=== PATIENT | female | born 1995 | race Caucasian/White ===

== ENCOUNTER 2025-07-29 12:57 | Outpatient (AMB) | payer OTHER, SELFPAY ==
--- NOTE | 2025-07-29 13:00 | MHC.OFFVIS ---
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 According to primary care notes, she has been using sumatriptan and Zofran but without sufficient relief. Nadiya tells me today, she began having headaches about 3 years ago and at this time if was a few timer per year. About 2-3 months ago it was a few times per week and the last month or so her headaches have been daily. 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 Her headaches are often present upon awakening in the morning. Her pain locating is occipital and temporal and at times behind her eyes. She has a squeezing pressure pain. Her pain is always bilateral. Her pain can reach an 8/10 and can prevent her from going and doing activities. She has associated light sensitivity and nausea but does not have any vision changes, or sensitivity to smells. Her headaches have been all day but tend to be worse around lunch time. Darkness, rest, ad ice can be beneficial. Caffeine can make them worse. Past when her headaches were not frequent, they were sometimes accompanied by visual auras described as squiggly lines in her vision preceding her headaches. She has not had any recent visual auras. She also notes 1 episode where she had aphasia associated with her migraine episode. She does also note that she has not been on any antianxiety medication for approximately 1 year. She had previously been on SSRIs in the past. She had been taking sumatriptan but this was not providing benefit. She has not taken it in about 3 weeks. When she was taking sumatriptan she was taking it on average twice per week. She has however been taking Tylenol and ibuprofen. She estimates that she takes at least 4 or 6 tablets of 200 mg tablets ibuprofen daily and has been doing this for the past 3 weeks or so. Other related background information: Sleep: Awakes from sleep frequently and can be tired duting the day. She does not snore. Stressors: Does have some work related stress and overall rates it to be 7/10. Hydration: She tells me that it could be better . She estimates 1 16oz bottles per day Caffeine intake: <100mg per day Alcohol intake:A couple times per month Substance use:Marijuana weekly Tobacco use:None Last eye exam:About 2 years ago Last dental visit: She does clench her teeth profoundly. She has had some gum issues d/t her clenching History of head injury: No Family planning considerations: No plans to become . No longer on BC Past medication trials: Sumatriptan-initially some benefit but eventually became less effective Prior workup: None PFSH Medical History (Updated 07/29/25 @ 13:52 by Tayler Wheatley CNP) Migraine Anxiety Family History (Updated 07/29/25 @ 13:11 by Andreas Marquez [facility]) Mother Breast cancer Father Alcoholic Bipolar disorder Depression ADHD Brother Depression Social History (Updated 07/29/25 @ 13:11 by Andreas Marquez [facility]) Alcohol intake: current Comment: 1-2 times a month Patient Tobacco Use Status: Never used Tobacco Review of Systems Const All systems reviewed & are unremarkable except as noted in HPI and below Physical Exam Vital Signs: Last Vital Signs Pulse 93 07/29/25 13:07 Resp 16 07/29/25 13:07 BP 108/68 07/29/25 13:07 Pulse Ox 100 07/29/25 13:07 Oxygen Delivery Method Room Air 07/29/25 13:07 BMI result Body Mass Index 25.8 Const General: cooperative, healthy appearing, comfortable and no acute distress Nutritional Appearance: well nourished Orientation/consciousness: patient oriented x3 Limitations: no limitations HEENT Head: Yes normal to inspection and Yes normocephalic Eyes General: appearance normal, both eyes and all related structures Visual Jimenez: normal visual jimenez by confrontation Alignment and Position: alignment normal Periorbital: periorbital findings normal Eyelids: Yes eyelids normal Conjunctivae: conjunctivae normal Sclerae: sclerae normal Back/Spine/Pelvis Other: Bilateral trapezius tenderness and tightening. No occipital notch tenderness. Some mild tenderness over the temporal muscles. No TMJ clicking or dislocation. Neuro General: patient oriented x3 and deep tendon reflexes 2+ bilaterally Cranial nerves: Yes CN's II-XII intact bilaterally and Yes Facial sensation intact/muscles of mastication intact Cognition (Neuro): normal cognition Gait exam (Neuro): Normal gait present Motor exam (neuro): 5/5 motor strength present throughout and no tremor noted Sensory Exam: double simultaneous stimulation for sensation normal Romberg Test: Negative Pupils: Normal pupillary reactivity/response: bilateral Psych Appearance: grossly normal Mental Status: mental status grossly normal Speech and movement: Normal speech and movement present and Clear speech present Affect: normal affect Attitude: cooperative Thought process: Normal thought process present Thought content: Normal thought content present Insight: Good insight present (Psych) Judgement: Good judgement present (Psych) Assessment & Plan Assessment & Plan (1) Aphasia: Code(s): R47.01 - Aphasia Category: Medical (2) Worsening headaches: Code(s): R51.9 - Headache, unspecified Category: Medical (3) Migraine without aura and without status migrainosus, not intractable: Code(s): G43.009 - Migraine without aura, not intractable, without status migrainosus Category: Medical (4) Migraine with aura and without status migrainosus, not intractable: Code(s): G43.109 - Migraine with aura, not intractable, without status migrainosus Category: Medical (5) Tension type headache: Code(s): G44.209 - Tension-type headache, unspecified, not intractable Category: Medical Plan Nadiya is a 30-year-old female patient with a past medical history of eczema who was presenting upon referral from primary care for evaluation of headache. Headaches are consistent with tension-type headache though notably she does have a history of migraine and there are some migrainous features to her headaches. I suspect however that her poor sleep, clenching during sleep, gum chewing, and tension building from work may be playing a role. She was counseled on gum chewing and how it may contribute to her headaches. I also believe that medication overuse may be playing a role and I did advise that she should stop using the ibuprofen for now. I did offer a steroid taper which we can consider if her headaches do not improve with use of amitriptyline over the course of the next couple of weeks. -MRI brain wihout contrast for baseline study due to worsening headaches and notable episode of aphasia associated with headaches in the past -steroid taper offered but declined at this time. Could reconsider if headaches do not improve -Trial amitriptyline 10mg -consider venlafaxine as an alternative agent if there was no benefit or adverse effects with the amitriptyline -Stop chewing gum -Follow-up in 6 weeks. We will consider abortive options at time of next visit Orders: Orders MR head/brain wo con Today G43.109 - Migraine with aura, not intractable, without status migrainosus, R47.01 - Aphasia, R51.9 - Headache, unspecified Medications: New amitriptyline 10 mg PO BEDTIME 30 tabs 5RF 30 days Coding Level of Care Code New Pt Level 4 (10317) Diagnoses Aphasia R47.01 Worsening headaches R51.9 Migraine without aura and without status migrainosus, not intractable G43.009 Migraine with aura and without status migrainosus, not intractable G43.109 Tension type headache G44.209
[2025-07-29 13:07] VITALS: BP 108/68; PULSE 93; RESP 16; O2SAT 100; BMI 25.8
--- OUTSIDE RECORDS SUMMARY | 2025-07-29 16:23 | XMS_ITS | Encounter Summary ---
Author Organization [facility] Address [address] [facility] [address] [place] [address] Phone Care Team Providers Care Foil Spinner Name Role Phone Liane Valencia MD, MSc Unavailable + Lina Harris MD Unavailable [phone] Unknown, Unknown Primary Care Provider Mishel Arredondo NP Unavailable Encounter Details Date Type Department Care Team (Late st Contact Info) Description 08/28/2022 Procedure Pass [facility], MRI [address] [facility] [address] [place] [address] Social History Tobacco Use Types Packs/Day Years Used Date Smoking Tobacco: Never Smokeless Tobacco: Never Alcohol Use Standard Drinks/Week Comments Not Currently 0 (1 standard drink = 0.6 oz pur e alcohol) Comments Unknown Sex and Gender Information Value Date Recorded Sex Assigned at Female 07/06/2022 5:20 PM EDT Legal Sex Female 3:05 PM EST Gender Identity Female 07/06/2022 5:20 PM EDT Sexual Orientation Straight 07/06/2022 5: 20 PM EDT documented as of this encounter Plan of Treatment Upcoming Encounters Date Type Department Care Team (Late st Contact Info) Description 10/03/2024 Procedure Pass [facility] Imaging Department, [facility], MRI [address] [facility], [address] [place] [address] 09/11/2025 8:10 AM EST Appointment [facility] Imaging Department, [facility], MRI [address] [facility], [address] [place] [address] Liane Valencia MD, MSc [address] [place] [phone] Ingrid@ [facility] 09/11/2025 9:00 AM EST Office [facility], [address], 10th [place] [address] Tayler Jameson PA-C [address] [place] [phone] [email or web address] Ryanne Hays MD, MPH [address] [place] [phone] [email or web address] documented as of this encounter Visit Diagnoses Not on filedocumented in this encounter Care Teams Foil Spinner Relationship Specialty Start Date End Date Unknown, Unknown, MD PCP - General 08/28/22 Liane Valencia MD, MSc [address] [place] [phone] [email or web address] Medical Oncology 08/28/22 Lina Harris MD [address] [place] [phone] Internal Medicine 08/28/22 [place] [address] Nurse Practitioner 11/30/23 documented as of this encounter Additional Source Comments The information contained in this document represents components of the legal health record. It is not the complete legal health record.[facility]
--- OUTSIDE RECORDS SUMMARY | 2025-07-29 16:23 | XMS_ITS | Encounter Summary ---
Author Organization [facility] Address [address] [facility] [address] [place] [address] Phone Care Team Providers Care Route Vending Machine Servicer Name Role Phone Liane Valencia MD, MSc Unavailable + Lina Harris MD Unavailable [phone] Unknown, Unknown Primary Care Provider Mishel Arredondo NP Unavailable Encounter Details Date Type Department Care Team (Late st Contact Info) Description 08/30/2023 Procedure Pass [facility], [facility], MRI [address] [facility], [address] [place], [place] [id number] Social History Tobacco Use Types Packs/Day Years Used Date Smoking Tobacco: Never Smokeless Tobacco: Never Alcohol Use Standard Drinks/Week Comments Not Currently 0 (1 standard drink = 0.6 oz pur e alcohol) Education Answer Date Recorded Are you interested in more education? Not on sakshi e 01/26/2023 Are you concerned about learning? Not on file 01/26/2023 No 01/26/2023 No 01/26/2023 Digital Access Answer Date Recorded No 02/27/2023 No 02/27/2023 Reliable internet access at home? Not on file 02/27/2023 Device with a working camera? Not on file Comments Unknown Sex and Gender Information Value Date Recorded Sex Assigned at Female 07/06/2022 5:20 PM EDT Legal Sex Female 3:05 PM EST Gender Identity Female 07/06/2022 5:20 PM EDT Sexual Orientation Straight 07/06/2022 5: 20 PM EDT documented as of this encounter Plan of Treatment Upcoming Encounters Date Type Department Care Team (Late st Contact Info) Description 10/03/2024 Procedure Pass [facility] Imaging Department, [facility], MRI [address] [facility], [address] [place] [address] 09/11/2025 8:10 AM EST Appointment [facility] Imaging Department, [facility], MRI [address] [facility], [address] [place] [address] Liane Valencia MD, MSc [address] [place] [phone] Ingrid@ [facility] 09/11/2025 9:00 AM EST Office Visit [facility], [address], 10th [place] [address] Tayler Jameson PA-C [address] [place] [phone] [email or web address] Ryanne Hays MD, MPH [address] [place] [address] [email or web address] documented as of this encounter Visit Diagnoses Not on filedocumented in this encounter Care Teams Route Vending Machine Servicer Relationship Specialty Start Date End Date Unknown, Unknown, MD PCP - General 08/28/22 Liane Valencia MD, MSc [address] [place] [id number] [email or web address] Medical Oncology 08/28/22 Lina Harris MD [address] [place] [address] Internal Medicine 08/28/22 Mishel Urena NP [address] [place] [address] Nurse Practitioner 08/30/23 documented as of this encounter Additional Source Comments The information contained in this document represents components of the legal health record. It is not the complete legal health record.[facility]
--- OUTSIDE RECORDS SUMMARY | 2025-07-29 16:23 | XMS_ITS | Clinical Summary ---
Author Organization [facility] Address [address] [place] [address] Phone Care Team Providers Care Marketing Services Specialist Name Role Phone Unavailable Primary Care Provider Unavailabl e Immunizations Immunization Administration Dates Next Due DTaP 05/06/2001, 9,1997,09/03,1997 HPV, Quadrivalent 03/04/2013,10/22/2012,08/20/20 12 Hep A, Adult 08/23/2016 Hep A, ped/adol 12/16/2015 Hep B, ped/adol 02/04/1998,1997,1997 HiB 07/08/1998, 8,1997,07/09 IPV 05/06/2001, 9,1997,07/09 Influenza, injectable, triva lent, preservative free 08/09/2017,08/23/2016 Influenza, intranasal, quadrivalent 08/25/2015,1 10/07/2013 MMR 05/20/2002,07/08/1998 Meningococcal B Bexsero 04/25/2018,03/04/2018 Meningococcal Conjugate 09/09/2014,08/03/2010 Td (adult) (Teniva), 5 Lf t etanus toxoid, PF, adsorbed 10/08/2018 Tdap 07/23/2008 Varicella 07/22/2007,05/04/1998 Social History Tobacco Use Types Packs/Day Years Used Date Smoking Tobacco: Never Assessed Comments Unknown Sex and Gender Information Value Date Recorded Sex Assigned at Not on file Legal Sex Female 1:22 PM EDT Gender Identity Not on file Sexual Orientation Not on file Last Filed Vital Signs Vital Sign Reading Time Taken Comments Blood Pressure 134/80 05/09/2019 12:00 AM EDT Pulse 107 05/09/2019 12:00 AM EDT Temperature 36.7 C (98 F) 05/09/2019 12:00 AM EDT Respiratory Rate 16 05/09/2019 12:00 AM EDT Oxygen Saturation 97% 05/09/2019 12:00 AM EDT Inhaled Oxygen Concentration - - Weight 60.9 kg (134 lb 4 oz) 05/09/2019 12:00 AM EDT Height 169.5 cm (5' 6.75 ) 05/09/2019 12:00 AM E DT Body Mass Index 21.18 05/09/2019 12:00 AM EDT Plan of Treatment Health Maintenance Due Date Last Done Comments Influenza Vaccines (#1) 2025 08/09/20 17, 08/23/2016, 08/25/2015, Additional history exists COVID-19 Vaccine () 06/01/2025 DTaP,Tdap,and Td Vaccines (8 - Td or Tdap) 10/08/2028 10/08/2018, 07/23/2008, 05/06/2001, Additional history exists Hepatitis B Vaccines Completed 02/04/1998, 1997, 1997 HIB Vaccines Completed 07/08/1998, 01/1998, 1997, Additional history exists IPV Vaccines Completed 05/06/2001, 01/1999, 1997, Additional history exists MMR Vaccines Completed 05/20/2002, 07/08/1998 Varicella Vaccines Completed 07/22/2007, 05/04/1998 HPV Vaccines Completed 03/04/2013, 10/02, 08/20/2012 Meningococcal Vaccine Completed 09/09/2014, 010 Hepatitis A Vaccines Completed 08/23/2016, 12/16/19 16 Men B Vaccine Completed 04/25/2018, 03/04/2018 Pneumococcal Vaccine Aged Out No long er eligible based on patient's age to complete this topic
--- OUTSIDE RECORDS SUMMARY | 2025-07-29 16:23 | XMS_ITS | Encounter Summary ---
Author Organization [facility] Address [address] [place] [address] Phone Care Team Providers Care Audit Partner Name Role Phone Unavailable Primary Care Provider Unavailabl e Encounter Details Date Type Department Care Team (Late st Contact Info) Description 01/29/2022 Conversion Encounter [facility], [address] [address] Social History Tobacco Use Types Packs/Day Years Used Date Smoking Tobacco: Never Assessed Comments Unknown Sex and Gender Information Value Date Recorded Sex Assigned at Not on file Legal Sex Female 1:22 PM EDT Gender Identity Not on file Sexual Orientation Not on file documented as of this encounter Plan of Treatment Not on file documented as of this encounter Visit Diagnoses Not on filedocumented in this encounter
--- OUTSIDE RECORDS SUMMARY | 2025-07-29 16:23 | XMS_ITS | Encounter Summary ---
Author Organization [facility] Address [address] [facility] [address] [place] [address] Phone Care Team Providers Care Lens Grinder Name Role Phone Dorie Nixon MD Primary Care Provider [phone] Self-Referred, Patient Unavailable Unavailab Liane Preciado MD, MSc Unavailable + Lina Harris MD Unavailable [phone] Unknown, Unknown Primary Care Provider Mishel Arredondo NP Unavailable Encounter Details Date Type Department Care Team (Late st Contact Info) Description 08/01/2022 [facility], MRI [address] [place] [address] Social History Tobacco Use Types Packs/Day Years [...] st Contact Info) Description 10/03/2024 [facility], [facility], MRI [address] [facility], Floor [address] [place] [id number] 09/11/2025 8:10 AM EST Appointment [facility], [facility], MRI [address] [facility], [address] [place] [address] Liane Valencia MD, MSc [address] [phone] Ingrid@ [facility] 09/11/2025 9:00 AM EST Office Visit [facility], [address], 10[address] [place] [address] Tayler Jameson PA-C [address] [place] [address] [email or web address] Ryanne Hays MD, MPH [address] [place] [address] [email or web address] documented as of this encounter Visit Diagnoses Not on filedocumented in this encounter Care Teams Lens Grinder Relationship Specialty Start Date End Date Dorie Nixon MD [address] [place] [address] [email or web address] PCP - General Pediatrics 02/05/19 08/27/22 Unknown, Unknown, PCP - General 08/28/22 Self-Referred, Patient 07/06/22 08/27/22 Liane Valencia MD, MSc [address] [address] [email or web address] Medical Oncology 08/28/22 Lina Harris MD [address] [place] [address] Internal Medicine 08/28/22 Mishel Urena NP [address] [place] [address] Nurse Practitioner 08/30/23 documented as of this encounter Additional Source Comments The information contained in this document represents components of the legal health record. It is not the complete legal health record.[facility]
--- OUTSIDE RECORDS SUMMARY | 2025-07-29 16:24 | XMS_ITS | Clinical Summary ---
Author Organization [facility] Address [address] [place] [address] Phone Care Team Providers Care Vibration Technician Name Role Phone Liane Valencia MD, MSc Unavailable + Lina Harris MD Unavailable [phone] Unknown, Unknown Primary Care Provider Mishel Arredondo NP Unavailable Allergies Active Allergy Reactions Criticality Noted Date Comments Gadobutrol Rigor,Nausea and/or Vomiting,Syncope High 08/30/2023 Patient had rigors, vomiting, and fainting after MRI contrast. Radiologist unable to rule out contrast reaction and recommends premedication for future MRIs Medications norgestimate-et hinyl estradiol (TRI-PREVIFEM, 28, ORAL) Take by mouth. Activ e ALPRAZolam (XANAX) 0.25 MG tablet Take 1-2 tablets 1 hour prior to MRI. May take additional 1-2 tablets just prior to MRI if still anxious. Do not drive after taking. 4 tablet 4 Active predniSONE (DELTASONE) 50 MG tablet Take 1 tablet (50 mg total) by mouth as directed. Take 1 tablet (50 mg total) by mouth 13 hours, 7 hours, and 1 hour prior to MRI 3 tablet 4 Active cetirizine (ZYRTEC) 10 MG tablet Take 1 tablet (10 mg total) by mouth as directed. Take 1 tablet (10 mg) by mouth 1 hour prior to MRI 1 tablet 4 Active Active Problems Problem Noted Date Diagnosed Date BRCA2 gene mutation positive 08/08/2022 Family history of breast cancer 08/08/2022 Anxiety 08/08/2022 Depressive disorder 08/08/2022 Eczema 08/08/2022 Family History Medical History Relation Comments Breast cancer Mother Relation Status Comments Mother Social History Tobacco Use Types Packs/Day Years Used Date Smoking Tobacco: Never Smokeless Tobacco: Never Tobacco Cessation:Counseling Given: Not Answered Alcohol Use Standard Drinks/Week Comments Not Currently [...] Orientation Straight 07/06/2022 5: 20 PM EDT Last Filed Vital Signs Vital Sign Reading Time Taken Comments Blood Pressure 122/74 08/30/2023 11:13 AM EST Pulse 73 08/30/2023 11:13 AM EST Temperature 37.1 C (98.7 F) 08/28/2022 3:29 PM EST Respiratory Rate 16 08/28/2022 3:29 PM EST Oxygen Saturation 99% 08/30/2023 11:13 AM EST Inhaled Oxygen Concentration - - Weight 68 kg (150 lb) 09/02/2024 9:16 AM EST Height 168.2 cm (5' 6.22 ) 08/28/2022 3:29 PM ES T Body Mass Index 24.05 08/28/2022 3:29 PM EST Plan of Treatment Upcoming Encounters Date Type Department Care Team (Late st Contact Info) Description 10/03/2024 Procedure Pass [facility], [facility], MRI [address] [place] [address] 09/11/2025 8:10 AM EST Appointment [facility], [facility], MRI [address] [place] [address] Liane Valencia MD, MSc [address] [facility], [place] [address] [place] [id number] [email or web address] 09/11/2025 9:00 AM EST Office [facility], [facility] [address] [facility], [address] [place] [address] Tayler Jameson PA-C [address] [place] [address] [email or web address] Ryanne Hays MD, MPH [address] [place] [address] [email or web address] Health Maintenance Due Date Last Done Comments DEPRESSION SCREENING 2009 HEPATITIS C SCREENING 2015 HIV ONE-TIME SCREENING (18-65 YEARS) 2015 PAP SMEAR 2018 INFLUENZA VACCINE (#1) 2025 9, 10/12/2018, 08/09/2017, Additional history exists COVID-19 VACCINE ( season) 2025 08/26/2021, 12/07/2020 Adult Td,Tdap Booster 10/08/2028 10/08/2018, 008 HEPATITIS A VACCINES Completed 08/23/2016, 12/16/19 16 MENINGOCOCCAL VACCINES (B) Completed 04/25/2018, SMOKING STATUS SCREENING (Once After 26 Yrs) Completed 08/30/2023 HIB VACCINES Aged Out No longer eligi ble based on patient's age to complete this topic MENINGOCOCCAL VACCINES (ACWY) Aged Out No longer eligible based on patient's age to complete this topic PNEUMOCOCCAL VACCINES (0-49 years) Aged Out No longer eligible based on patient's age to complete this topic Medical Devices Not on file Insurance [employer] Care Teams Vibration Technician Relationship Specialty Start Date End Date Unknown, Unknown, MD PCP - General 08/28/22 Liane Valencia MD, MSc [address] [facility] [address] [place] [id number] [email or web address] Medical Oncology 08/28/22 Lina Harris MD [address] [facility] [address] [place] [id number] Internal Medicine 08/28/[address] [place] [address] Nurse Practitioner 08/30/23 Additional Source Comments The information contained in this document represents components of the legal health record. It is not the complete legal health record.[facility]
== END 2025-07-29 13:42 | disposition home or self-care (01) ==
LOC: HO.HSM 12:57
PROVIDERS: PCP Physician Assistant; Visit Provider Nurse Practitioner
DX: R47.01 Aphasia (principal); R51.9 Headache, unspecified; G43.009 Migraine without aura, not intractable, without status migrainosus; G43.109 Migraine with aura, not intractable, without status migrainosus; G44.209 Tension-type headache, unspecified, not intractable
CPT/HCPCS: 99204